=== PATIENT | female | born 2000 | race African-American/Black ===

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

== ENCOUNTER 2022-04-29 05:30 | Inpatient (IN) | payer MEDICAID, OTHER ==
[~2022-04-29] VITALS: Ht 165.1 cm; Wt 93.9 kg
[2022-04-29] MEDS ORDERED: BUTORPHANOL TARTRATE 2 MG/ML VIAL IV PRN ×2 (07:45→18:15)
[2022-04-29] MEDS ORDERED: LIDOCAINE HCL 1% 20ML VIAL (Pyxis) INJ INFIL SCH (07:45)
[2022-04-29] MEDS ORDERED: RHO(D) IMMUNE GLOBULIN 300 MCG/SYR IM ONE (07:45)
[2022-04-29] MEDS ORDERED: OXYTOCIN 30 UNITS/500ML NS PMX 500 ML IV SCH ×2 (07:45→19:00)
[2022-04-29] MEDS ORDERED: MISOPROSTOL 100MCG TABLET VG SCH (07:45)
[2022-04-29] MEDS ORDERED: PENICILLIN G POTASSIUM 5 MMU in DEXT 5% WATER 100 ML IV SCH (07:45)
[2022-04-29] MEDS ORDERED: DEXT 5%/LACTATED RINGERS 1,000 ML IV SCH (07:45)
[2022-04-29] MEDS ORDERED: NALOXONE HCL 0.4 MG/ML 1ML VIAL IM PRN (07:45)
[2022-04-29 08:11] LABS: BASOPHILS % 0.2 % (0.0-2.0); EOSINOPHILS % 0.7 % (0.0-5.0); HEMATOCRIT. 34.1 % (36.0-48.0); HEMOGLOBIN. 10.7 g/dL (12.0-16.0); LYMPHOCYTES % 23.3 % (20.0-50.0); MEAN CORPUSCULAR HEMOGLOBIN 24.8 pg (28.0-32.0); MEAN CORPUSCULAR VOLUME 78.9 fL (81.0-99.0); MEAN PLATELET VOLUME 7.4 fl (7.4-10.4); MONOCYTES % 7.6 % (2.0-8.0); NEUTROPHILS % 68.2 % (40.0-76.0); PLATELET 403 x1000/uL (130-400); RED BLOOD CELL COUNT 4.32 mill/uL (4.2-5.4); RED CELL DISTRIBUTION WIDTH 14.1 % (11.6-14.6)
[2022-04-29] MEDS: LACTATED RINGERS 1,000 ML IV SCH ×3 (08:26→10:21)
[2022-04-29 08:36] LABS: CLARITY URINE CLEAR (CLEAR); COLOR URINE YELLOW (YELLOW); KETONES URINE NEGATIVE (NEGATIVE); LEUKOCYTE ESTERASE URINE NEGATIVE (NEGATIVE); NITRITE URINE NEGATIVE (NEGATIVE); OCCULT BLOOD URINE 2+ (NEGATIVE); PH URINE 6.5 (4.5-8.0); PROTEIN URINE NEGATIVE (NEGATIVE); SPECIFIC GRAVITY URINE 1.005 (1.005-1.030); UROBILINOGEN URINE 0.2 E.U./dL (0.2-1.0)
[2022-04-29 09:10] LABS: *AMPHETAMINES SCREEN URINE NEGATIVE (NEGATIVE); *BARBITURATES SCREEN URINE NEGATIVE (NEGATIVE); *BENZODIAZEPINES SCREEN URINE NEGATIVE (NEGATIVE); *COCAINE SCREEN URINE NEGATIVE (NEGATIVE); CANNABINOID URINE SCREEN NEGATIVE (NEGATIVE); METHADONE URINE SCREEN NEGATIVE (NEGATIVE); OPIATES URINE SCREEN NEGATIVE (NEGATIVE); PHENCYCLIDINE URINE SCREEN NEGATIVE (NEGATIVE)
[2022-04-29] MEDS ORDERED: ROPIVACAINE HCL/PF EPIDURAL 200 ML EPI ONE (09:16)
[2022-04-29 09:55] LABS: INR 0.9; PARTIAL THROMBOPLASTIN TIME 28.7 sec (23.4-31.0); PROTHROMBIN TIME 10.1 sec (9.6-11.0)
[2022-04-29] MEDS ORDERED: PENICILLIN G POTASSIUM 2.5 MMU in DEXTROSE 5% WATER 50 ML IV SCH (12:00)
[2022-04-29] MEDS ORDERED: PHENYLEPHRINE HCL 10 MG/ML 1ML (IV VIAL) IV ONE (12:00)
[2022-04-29] MEDS ORDERED: EPHEDRINE SULFATE 50MG/ML VIAL ONE (12:00)
[2022-04-29] MEDS ORDERED: DEXAMETHASONE 4MG/ML 1ML VIAL ONE (17:09)
[2022-04-29] MEDS ORDERED: OXYTOCIN 10 UNITS/ML 1ML ONE (17:09)
[2022-04-29] MEDS ORDERED: ONDANSETRON HCL 4MG/2ML INJ ONE (17:09)
[2022-04-29] MEDS ORDERED: CEFAZOLIN SODIUM 1000MG/VIAL ONE (17:09)
[2022-04-29] MEDS ORDERED: MORPHINE SULFATE/PF 1MG/ML 10ML AMP ONE (17:10)
[2022-04-29] MEDS ORDERED: LIDOCAINE HCL 2%/EPINEPHRINE 1:100,000 20 ML VIAL INFIL ONE (17:13)
[2022-04-29] MEDS ORDERED: SODIUM BICARBONATE 4% (2.4MEQ) 5ML VIAL IV ONE (17:13)
[2022-04-29] MEDS ORDERED: MIDAZOLAM HCL 2 MG/2 ML VIAL ONE (17:56)
[2022-04-29] MEDS ORDERED: KETAMINE HCL 50 MG/ML 10ML ONE (18:02)
[2022-04-29] MEDS ORDERED: PROPOFOL 200MG/20ML VIAL IV ONE (18:03)
[2022-04-29] MEDS ORDERED: NALOXONE HCL 0.4 MG/ML 1ML VIAL IV PRN (18:15)
[2022-04-29] MEDS ORDERED: ONDANSETRON HCL 4MG/2ML INJ IV PRN ×2 (18:15→19:00)
[2022-04-29] MEDS ORDERED: DIPHENHYDRAMINE 50MG/ML VIAL IV PRN (18:15)
[2022-04-29] MEDS ORDERED: DIPHENHYDRAMINE 50MG/ML VIAL ONE (18:19)
[2022-04-29] MEDS ORDERED: KETOROLAC 60MG/2ML VIAL IM ONE (18:42)
[2022-04-29] MEDS ORDERED: KETOROLAC 30MG/ML VIAL IV PRN (18:45)
[2022-04-29] MEDS ORDERED: RHO(D) IMMUNE GLOBULIN 300 MCG/SYR IM PRN (19:00)
[2022-04-29] MEDS ORDERED: IBUPROFEN 400MG TABLET PO PRN (19:00)
[2022-04-29] MEDS ORDERED: NALOXONE HCL 0.4MG/ML VIAL IV PRN (19:00)
[2022-04-29] MEDS ORDERED: LANOLIN OINT 7GM TUBE TOP PRN (19:00)
[2022-04-29] MEDS ORDERED: HYDROCODONE/ACETAMINOPHEN 5/325MG TABLET PO PRN (19:00)
[2022-04-29 22:02] VITALS: BP 120/79
[2022-04-30 04:00] VITALS: BP 122/80
[2022-04-30 06:30] LABS: BASOPHILS % 0.1 % (0.0-2.0); HEMOGLOBIN. 8.3 g/dL (12.0-16.0); LYMPHOCYTES % 8.7 % (20.0-50.0); MEAN CORPUSCULAR VOLUME 78.9 fL (81.0-99.0); MEAN PLATELET VOLUME 7.4 fl (7.4-10.4); MONOCYTES % 7.9 % (2.0-8.0); NEUTROPHILS % 83.3 % (40.0-76.0); PLATELET 348 x1000/uL (130-400)
[2022-04-30 08:00] VITALS: BP 111/53
[2022-04-30] MEDS: PRENATAL VIT/FE FUMARATE/FA TABLET PO SCH (11:15)
[2022-04-30 16:00] VITALS: BP 117/69
[2022-04-30] MEDS: HYDROCODONE/ACETAMINOPHEN 5/325MG TABLET PO PRN ×2 (18:15→23:26)
[2022-04-30 20:00] VITALS: BP 122/76
[2022-05-01 04:00] VITALS: BP 114/67
[2022-05-01] MEDS: HYDROCODONE/ACETAMINOPHEN 5/325MG TABLET PO PRN (04:10)
[2022-05-01 06:43] LABS: HEMATOCRIT 21.5 % (36.0-48.0); MEAN CORPUSCULAR HEMOGLOBIN 25.3 pg (28.0-32.0); MEAN CORPUSCULAR VOLUME 78.5 fL (81.0-99.0); PLATELET 310 x1000/uL (130-400); RED BLOOD CELL COUNT 2.74 mill/uL (4.2-5.4); RED CELL DISTRIBUTION WIDTH 14.3 % (11.6-14.6)
[2022-05-01 07:57] LABS: HEMOGLOBIN 6.9 g/dL (12.0-16.0)
[2022-05-01 09:00] VITALS: BP 115/74
[2022-05-01] MEDS: PRENATAL VIT/FE FUMARATE/FA TABLET PO SCH (09:22)
[2022-05-01] MEDS: IBUPROFEN 800MG TABLET PO PRN ×3 (09:22→23:12)
[2022-05-01 16:00] VITALS: BP_SYST 120; BP_SYST 122; BP_DIAS 52; BP_DIAS 79
[2022-05-01] MEDS: FERROUS SULFATE 325MG TABLET PO SCH ×2 (16:24→17:30)
[2022-05-01 20:00] VITALS: BP 123/81
[2022-05-01 23:20] VITALS: BP 129/74
[2022-05-02 04:00] VITALS: BP 111/72
[2022-05-02] MEDS: IBUPROFEN 800MG TABLET PO PRN (06:06)
[2022-05-02] MEDS: FERROUS SULFATE 325MG TABLET PO SCH (07:30)
[2022-05-02 08:00] VITALS: BP 119/76
[2022-05-02] MEDS: PRENATAL VIT/FE FUMARATE/FA TABLET PO SCH (09:00)
[2022-05-02 10:10] LABS: HEMATOCRIT 21.7 % (36.0-48.0); HEMOGLOBIN 7.2 g/dL (12.0-16.0)
== END 2022-05-02 12:00 | disposition home or self-care (01) | DRG 540 ==
LOC: OBSVTOIN 05:30 → 8 EST LDRP 05:30 → UNDODISOB 16:30 → 8EST 21:49
PROVIDERS: ADMIT Obstetrics & Gynecology; ATTEND Obstetrics & Gynecology
PROC: 10D00Z1 Extraction of Products of Conception, Low, Open Approach (ICD-10-PCS; principal; 2022-04-29)
PROC: 0U9 Female Reproductive System, Drainage (ICD-10-PCS; 2022-04-29)
DX: O76 Abnormality in fetal heart rate and rhythm complicating labor and delivery (principal); D62 Acute posthemorrhagic anemia; O34.83 Maternal care for other abnormalities of pelvic organs, third trimester; O99.12 Other diseases of the blood and blood-forming organs and certain disorders involving the immune mechanism complicating childbirth; D72.829 Elevated white blood cell count, unspecified; N83.8 Other noninflammatory disorders of ovary, fallopian tube and broad ligament; O99.02 Anemia complicating childbirth; Z20.822 Contact with and (suspected) exposure to COVID-19; Z37.0 Single live birth; Z3A.39 39 weeks gestation of pregnancy
CPT/HCPCS: 36415; 76805; 76818; 80305; 81003; 84443; 85014; 85018; 85025; 85027; 86592; 86703; 86762; 86850; 86900; 87340; 87426; 88307; 99281; J0690; J1100; J1200; J1885; J2250; J2274; J2310; J2370; J2405; J2540; J2704; J2795; J3490; J7060; J7120; A4315; J2590

== ENCOUNTER 2023-04-03 09:04 | Inpatient (IN) | payer OTHER ==
[~2023-04-03] VITALS: Ht 162.6 cm; Wt 90.3 kg
[2023-04-03] MEDS ORDERED: METHYLERGONOVINE MALEATE 0.2 MG/ML IM PRN (10:00)
[2023-04-03] MEDS ORDERED: CARBOPROST TROMETHAMINE 250 MCG/ML AMPUL IM PRN (10:00)
[2023-04-03] MEDS ORDERED: OXYTOCIN 30 UNITS/500ML NS PMX 500 ML IV SCH ×2 (10:00→14:15)
[2023-04-03] MEDS: LACTATED RINGERS 1,000 ML IV SCH ×2 (10:50→20:21)
[2023-04-03 11:07] LABS: BASOPHILS % 0.1 % (0.0-2.0); EOSINOPHILS % 0.3 % (0.0-5.0); HEMATOCRIT. 30.5 % (36.0-48.0); HEMOGLOBIN. 9.5 g/dL (12.0-16.0); LYMPHOCYTES % 20.7 % (20.0-50.0); MEAN CORPUSCULAR HEMOGLOBIN 22.9 pg (28.0-32.0); MEAN CORPUSCULAR VOLUME 73.9 fL (81.0-99.0); MEAN PLATELET VOLUME 7.1 fl (7.4-10.4); NEUTROPHILS % 70.9 % (40.0-76.0); PLATELET 383 x1000/uL (130-400); RED BLOOD CELL COUNT 4.13 mill/uL (4.2-5.4); RED CELL DISTRIBUTION WIDTH 15.8 % (11.6-14.6)
[2023-04-03] MEDS ORDERED: EPHEDRINE SULFATE 50MG/ML VIAL ONE (11:09)
[2023-04-03] MEDS ORDERED: CEFAZOLIN SODIUM 1000MG/VIAL ONE (11:09)
[2023-04-03] MEDS ORDERED: OXYTOCIN 10 UNITS/ML 1ML ONE ×3 (11:09→13:12)
[2023-04-03] MEDS ORDERED: FENTANYL CITRATE/PF 50MCG/ML 2ML VIAL ONE (11:10)
[2023-04-03] MEDS ORDERED: ONDANSETRON HCL 4MG/2ML INJ ONE (11:10)
[2023-04-03] MEDS ORDERED: MORPHINE SULFATE/PF 1MG/ML 10ML AMP ONE (11:10)
[2023-04-03] MEDS ORDERED: DIPHENHYDRAMINE 50MG/ML VIAL ONE (11:10)
[2023-04-03] MEDS ORDERED: PHENYLEPHRINE HCL 10 MG/ML 1ML (IV VIAL) IV ONE (11:10)
[2023-04-03] MEDS ORDERED: SODIUM CHLORIDE 0.9% 10ML VIAL ONE (11:13)
[2023-04-03 11:37] LABS: CLARITY URINE CLOUDY (CLEAR); COLOR URINE DARK YELLOW (YELLOW); KETONES URINE TRACE (NEGATIVE); LEUKOCYTE ESTERASE URINE TRACE (NEGATIVE); NITRITE URINE NEGATIVE (NEGATIVE); OCCULT BLOOD URINE NEGATIVE (NEGATIVE); PROTEIN URINE 1+ (NEGATIVE); SPECIFIC GRAVITY URINE 1.025 (1.005-1.030)
[2023-04-03 12:00] LABS: *AMPHETAMINES SCREEN URINE NEGATIVE (NEGATIVE); *BARBITURATES SCREEN URINE NEGATIVE (NEGATIVE); *BENZODIAZEPINES SCREEN URINE NEGATIVE (NEGATIVE); *COCAINE SCREEN URINE NEGATIVE (NEGATIVE); CANNABINOID URINE SCREEN NEGATIVE (NEGATIVE); INR 0.9; METHADONE URINE SCREEN NEGATIVE (NEGATIVE); OPIATES URINE SCREEN NEGATIVE (NEGATIVE); PARTIAL THROMBOPLASTIN TIME 25.4 sec (23.4-31.0); PHENCYCLIDINE URINE SCREEN NEGATIVE (NEGATIVE); PROTHROMBIN TIME 9.9 sec (9.6-11.0)
[2023-04-03] MEDS ORDERED: DEXAMETHASONE 4MG/ML 1ML VIAL ONE (12:50)
[2023-04-03] MEDS ORDERED: KETOROLAC 60MG/2ML VIAL IM ONE (12:58)
[2023-04-03] MEDS ORDERED: NALOXONE HCL 0.4 MG/ML 1ML VIAL IV PRN (13:30)
[2023-04-03] MEDS ORDERED: DIPHENHYDRAMINE 50MG/ML VIAL IV PRN (13:30)
[2023-04-03] MEDS ORDERED: KETOROLAC 30MG/ML VIAL IV SCH (13:30)
[2023-04-03] MEDS ORDERED: ACETAMINOPHEN WITH CODEINE 300/30MG TABLET PO PRN (14:15)
[2023-04-03] MEDS ORDERED: LANOLIN OINT 7GM TUBE TOP PRN (14:15)
[2023-04-03] MEDS ORDERED: BISACODYL 10MG SUPP PR PRN (14:15)
[2023-04-03] MEDS ORDERED: DIPHENHYDRAMINE 25MG CAPSULE PO PRN (14:15)
[2023-04-03] MEDS ORDERED: HYDROCODONE/ACETAMINOPHEN 5/325MG TABLET PO PRN (14:15)
[2023-04-03] MEDS ORDERED: ONDANSETRON HCL 4MG/2ML INJ IV PRN (14:15)
[2023-04-03] MEDS ORDERED: DEXT 5%/LACTATED RINGERS 1,000 ML IV SCH (14:15)
[2023-04-03] MEDS ORDERED: RHO(D) IMMUNE GLOBULIN 300 MCG/SYR IM PRN (14:15)
[2023-04-03] MEDS ORDERED: IBUPROFEN 400MG TABLET PO PRN (14:15)
[2023-04-03 15:35] LABS: HEPATITIS B SURFACE ANTIGEN NEGATIVE
[2023-04-03 16:00] VITALS: BP 132/60; PULSE 91; RESP 18; TEMP 98; O2SAT 100
[2023-04-03 16:30] VITALS: BP 124/71; PULSE 91; RESP 18; O2SAT 100
[2023-04-03 19:30] VITALS: BP 114/65; PULSE 91; RESP 18; TEMP 97.6; O2SAT 97
[2023-04-03] MEDS ORDERED: DOCUSATE SODIUM 100MG CAPSULE PO SCH (21:00)
[2023-04-04] VITALS: BP 101/50; PULSE 84; RESP 20; TEMP 98.4
[2023-04-04 04:00] VITALS: BP 104/53; PULSE 86; RESP 18; TEMP 98.1
[2023-04-04] MEDS: IBUPROFEN 800MG TABLET PO PRN ×4 (04:11→22:45)
[2023-04-04 06:30] LABS: BASOPHILS % 0.2 % (0.0-2.0); EOSINOPHILS % 0.2 % (0.0-5.0); HEMATOCRIT. 25.8 % (36.0-48.0); HEMOGLOBIN. 7.9 g/dL (12.0-16.0); MEAN CORPUSCULAR HEMOGLOBIN 22.9 pg (28.0-32.0); MEAN CORPUSCULAR VOLUME 74.9 fL (81.0-99.0); MEAN PLATELET VOLUME 7.2 fl (7.4-10.4); MONOCYTES % 7.4 % (2.0-8.0); NEUTROPHILS % 72.2 % (40.0-76.0); PLATELET 338 x1000/uL (130-400); RED BLOOD CELL COUNT 3.45 mill/uL (4.2-5.4)
[2023-04-04 08:00] VITALS: BP 96/57; PULSE 80; RESP 18; TEMP 97.8; O2SAT 97
[2023-04-04] MEDS ORDERED: PRENATAL VIT/FE FUMARATE/FA TABLET PO SCH (09:00)
[2023-04-04 14:00] VITALS: BP 102/56; PULSE 72; RESP 18; TEMP 98.4
[2023-04-04 19:30] VITALS: BP 116/63; PULSE 91; RESP 20; TEMP 97.5; O2SAT 100
[2023-04-05 04:00] VITALS: BP 111/63; PULSE 94; RESP 19; TEMP 98.3
[2023-04-05] MEDS: IBUPROFEN 800MG TABLET PO PRN (04:49)
[2023-04-05] MEDS ORDERED: FERR325T6 MT (08:07)
[2023-04-05] MEDS ORDERED: IBUP-2030 PO (08:07)
[2023-04-05] MEDS ORDERED: MULT-1116 MT (08:07)
[2023-04-05 08:30] VITALS: O2SAT 100
[2023-04-05 09:00] VITALS: BP 120/59; PULSE 102; RESP 18; TEMP 98.7
[2023-04-05] MEDS ORDERED: MEDROXYPROGESTERONE ACETATE 150MG/ML VIAL IM NR (09:30)
== END 2023-04-05 12:30 | disposition home or self-care (01) | DRG 540 ==
LOC: OBSVTOIN 09:04 → 8 EST LDRP 09:04 → 8EST 17:46
PROVIDERS: ADMIT Obstetrics & Gynecology; ATTEND Obstetrics & Gynecology
PROC: 10D00Z1 Extraction of Products of Conception, Low, Open Approach (ICD-10-PCS; principal; 2023-04-03)
DX: O69.81X0 Labor and delivery complicated by cord around neck, without compression, not applicable or unspecified (principal); D62 Acute posthemorrhagic anemia; O99.02 Anemia complicating childbirth; O34.219 Maternal care for unspecified type scar from previous cesarean delivery; Z20.822 Contact with and (suspected) exposure to COVID-19; Z3A.39 39 weeks gestation of pregnancy; Z37.0 Single live birth; E03.9 Hypothyroidism, unspecified
CPT/HCPCS: 36415; 80305; 81003; 85025; 86592; 86703; 86762; 86850; 86900; 87340; 87426; 88307; G0378; J0690; J1050; J1100; J1200; J1885; J2274; J2370; J2405; J3010; J3490; J7120; J7121; A4315; J2590

== ENCOUNTER 2023-04-06 14:02 | Emergency (ER) | payer OTHER ==
[~2023-04-06] VITALS: Ht 162.6 cm; Wt 77.0 kg
[~2023-04-06 14:02] MED LIST: FERR325T6 MT; IBUP-2030 PO; MULT-1116 MT
[2023-04-06 14:05] VITALS: O2SAT 100
[2023-04-06] MEDS ORDERED: KETOROLAC 15MG/ML VIAL IM ONE (14:45)
[2023-04-06] MEDS ORDERED: CYCLOBENZAPRINE 10MG TABLET PO ONE (14:45)
[2023-04-06 16:20] VITALS: BP 120/75; PULSE 80; RESP 14; TEMP 98.4
== END 2023-04-06 17:02 | disposition home or self-care (01) ==
LOC: ER 14:56
DX: S39.011A Strain of muscle, fascia and tendon of abdomen, initial encounter (principal); M79.10 Myalgia, unspecified site; Z98.890 Other specified postprocedural states; X58.XXXA Exposure to other specified factors, initial encounter; Y93.89 Activity, other specified; Y92.89 Other specified places as the place of occurrence of the external cause; Y99.8 Other external cause status
CPT/HCPCS: 99283; 96372; J1885